=== PATIENT | male | born 1995 | race Caucasian/White ===

== ENCOUNTER 2018-08-01 12:37 | Emergency (ER) | payer OTHER ==
[~2018-08-01] VITALS: Ht 182.9 cm; Wt 86.2 kg
[2018-08-01] MEDS ORDERED: MEDROLDOSEPACK PO (13:32)
[2018-08-01] MEDS ORDERED: VISTARIL 25 MG25 M1 PO (13:32)
[2018-08-01 13:56] VITALS: BP 131/76
== END 2018-08-01 13:57 | disposition home or self-care (01) ==
LOC: ER 12:37
DX: L25.9 Unspecified contact dermatitis, unspecified cause (principal); Z88.6 Allergy status to analgesic agent; Z88.5 Allergy status to narcotic agent